=== PATIENT | male | born 1985 | race Caucasian/White ===

== ENCOUNTER 2020-08-10 06:15 | Emergency (ER) | payer MEDICAID, OTHER ==
[~2020-08-10] VITALS: Ht 177.8 cm; Wt 63.6 kg
[~2020-08-10 06:15] MED LIST: NO HOME MEDS
--- NOTE | 2020-08-10 06:38 | NUR ---
Assumed care of patient. Patient A&Ox4 and maintaing airway. Patient to radiology, patient able to self transfer to w/c.
--- NOTE | 2020-08-10 06:45 | NUR ---
Patient back from xray.
--- NOTE | 2020-08-10 08:35 | NUR ---
Patient sleeping in bed, maintaining airway. Patient declined warm blanket. will continue to monitor.
--- NOTE | 2020-08-10 09:23 | NUR ---
Patient sleeping in bed, at times patient's SPO2 drops to 80's on 1 L O2 NC. Patient easily rousable and reminded to take deep breaths. Then SPO2 improves to 99%.
[2020-08-10] MEDS ORDERED: NALO4SPR BOTHNARES (09:45)
[2020-08-10 10:21] VITALS: BP 151/106
== END 2020-08-10 10:25 | disposition home or self-care (01) ==
LOC: ER 06:16
DX: T40.2X1A Poisoning by other opioids, accidental (unintentional), initial encounter (principal); F15.90 Other stimulant use, unspecified, uncomplicated; F11.90 Opioid use, unspecified, uncomplicated; Z79.899 Other long term (current) drug therapy
CPT/HCPCS: 71046; 99285